=== PATIENT | male | born 1965 | race Caucasian/White ===

== ENCOUNTER → 2019-05-07 | Outpatient (CLI) | payer OTHER ==
--- NOTE | 2019-05-07 16:59 | CARDNUC ---
[place] [address] CARDIAC NUCLEAR IMAGING REPORT Name: MARIA DOLORES WALLACE JR Room: [facility]#: [id number] Admission: 05/07/19 Attend Phys: Emerson Corea MD Discharge: Date of : 69 Date of Service: 05/07/19 1658 Report #: [id number] THIS REPORT FOR: //name// APPROVED REPORT Study performed: 05/07/2019 09:53:41 Exam: Nuclear Stress Test Indication: Chest pain, Abnormal EKG Patient Location: Out-Patient Stress Tech: Gali Ty Stress Nurse: Nicki Olguin RN Ht: 5 ft 9 in Wt: 181 lbs BSA: 1.98 m2 BMI: 26.72 Medical History Medical History: Angina, Carotid artery disease, Diabetes, HTN, Hyperlipidemia, Aortic Valve Stenosis, Murmur, Severe Back , Hip and Leg pain. Medications: Atorvastatin, ASA 81 Mg. Allergies: No known drug allergies Cardiac Risk Factors: Age, Current Smoker, DM, FHX of CAD, HTN, Hyperlipidemia, Aortic Valve Stenosis, Carotid Stenosis. Previous Cardiac Procedures: None Pretest Chest Pain Characteristics: No chest pain Exercise History: Indeterminate Physical Disabilities: Severe Back, Hip and Leg pain. Meds Held (24 hrs): None Stress Test Details Stress Test: Pharmacologic stress testing performed using 0.4 mg of regadenoson per 5 mL given IV over 10 seconds. Reason for pharmacologic stress test: Severe back, hip and leg pain.. HR Resting HR: 92 bpm Max Heart Rate (APMHR): 168 bpm Max HR Achieved: 107 bpm Target HR (85% APMHR): 142 bpm % of APMHR: 63 Recovery HR: 102 bpm BP Resting BP: 151/99 mmHg Max BP: 109/75 [place] [address] CARDIAC NUCLEAR IMAGING REPORT Name: MARIA DOLORES WALLACE JR Room: [facility]#: [id number] Admission: 05/07/19 Attend Phys: Emerson Corea MD Discharge: Date of : 69 Date of Service: 05/07/19 1658 Report #: [id number] ECG Resting ECG: Sinus Rhythm Stress ECG: Sinus Tachycardia ST Change: Horizontal ST depression Maximum ST Deviation: 1 mm Arrhythmia: None Recovery ECG: Sinus Rhythm Recovery ST Change: Horizontal ST depression Recovery ST Deviation: 1 mm Recovery Arrhythmia: None Clinical Reason for Termination: Completed protocol Stress Symptoms: Headache Exercise duration: 00 min 00 sec Exercise capacity: 1.00 METs The patient tolerated Lexiscan infusion without significant cardiac symptoms. Nurse Comments A 54 year old male presented for [facility] Protocol Nuclear Stress Test for chest pain. Patient requested to stop treadmill due to severe back and leg pain, he was no longer able to continue walking. Test was changed to a sitting Lexiscan which was tolerated well. Recovery unremarkable with PO caffeine, effective. Patient was escorted by staff to Nuclear Medicine for images. Patient was stable and stated he felt good at that time. Stress ECG Conclusion Baseline 12-lead EKG show sinus rhythm without significant ST or T wave abnormality. EKGs obtained during and post Lexiscan infusion show sinus rhythm and sinus tachycardia with [address] segment depression diffusely that persisted throughout recovery. NM EXAM: Myocardial Perfusion REST/STRESS Resting Data Rest SPECT myocardial perfusion imaging was performed in supine position 30 minutes following the intravenous injection of 12.0 mCi of Tc-99m Sestamibi. Time of rest injection: 0755 The images were gated to evaluate regional wall motion and calculate left ventricular ejection fraction. Administration Route: IV Administration Site: [place] [address] CARDIAC NUCLEAR IMAGING REPORT Name: MARIA DOLORES WALLACE JR Room: [facility]#: [id number] Admission: 05/07/19 Attend Phys: Emerson Corea MD Discharge: Date of : 69 Date of Service: 05/07/19 1658 Report #: [id number] Pharmacologic Stress Pharmacologic stress test was performed by injecting Regadenoson 0.4 mg IV push followed by the intravenous injection of 35.6 mCi of Tc-99m Sestamibi. Time of stress injection: 09:40 Administration Route: IV Administration Site: Right AC Heart Rate at time of stress injection: 105 bpm. Gated Stress SPECT was performed 45 minutes after stress injection. The images were gated to evaluate regional wall motion and calculate left ventricular ejection fraction. Prone imaging was performed. Study Quality Study: Good Artifact: Mild Diaphragmatic artifact Study Data At rest, the left ventricular ejection fraction was 77%.. Post stress, the left ventricular ejection was 58%.. TID = 1.11. Perfusion Perfusion images obtained in the supine position at rest and post Lexiscan stress show a moderate region of photopenia in the inferior wall that resolves completely with post stress prone imaging suggesting diaphragmatic attenuation artifact. No other significant fixed or reversible defects were identified. Wall Motion Normal left ventricular wall motion. Nuclear Conclusion ECG Findings: equivocal Clinical Findings: negative for ischemia Nuclear Findings: negative for ischemia Exercise Capacity: not assessed Left Ventricular Function: normal Risk Study: low Myocardial perfusion images show no defect to suggest infarct or ischemia. Left particular systolic function appears normal on gated studies. This appears to be a low risk study. EKG changes likely represent false positive finding in light of myocardial [place] [address] CARDIAC NUCLEAR IMAGING REPORT Name: MARIA DOLORES WALLACE JR Room: [facility] Juanita#: [id number] Admission: 05/07/19 Attend Phys: Emerson Corea MD Discharge: Date of : 69 Date of Service: 05/07/19 1658 Report #: [id number] <Conclusion> Baseline 12-lead EKG show sinus rhythm without significant ST or T wave abnormality. EKGs obtained during and post Lexiscan infusion show sinus rhythm and sinus tachycardia with [address] segment depression diffusely that persisted throughout recovery. <ELECTRONICALLY SIGNED> By: Charan Grigsby MD, FACC 05/07/19 1658 1658 1658 Charan Grigsby MD, FACC /INF
== END ==
LOC: M.NUC 04-09 09:05
DX: R07.1 Chest pain on breathing (principal); I25.10 Atherosclerotic heart disease of native coronary artery without angina pectoris; E11.9 Type 2 diabetes mellitus without complications; I10 Essential (primary) hypertension; E78.5 Hyperlipidemia, unspecified; F17.200 Nicotine dependence, unspecified, uncomplicated; Z79.899 Other long term (current) drug therapy; Z79.82 Long term (current) use of aspirin